=== PATIENT | male | born 1985 | race Caucasian/White ===

== ENCOUNTER 2023-08-28 16:38 | Emergency (ER) | payer SELFPAY ==
[2023-08-28 16:42] VITALS: BP 123/79; PULSE 71; RESP 18; TEMP 36.9; O2SAT 98; BMI 26.6
--- NOTE | 2023-08-28 16:45 | PC.NURSE ---
Swelling noted to left hand, no redness or open areas noted, patient denies injury to area.
--- NOTE | 2023-08-28 16:49 | XR_ITS ---
The [address] [address] Patient Name: TWILA GARCIA MRN: [id number] date: 1985 Sex: M Assigned Patient Location: ER Current Patient Location: ER Accession/Order Number: [id number] Exam Date: 08/28/2023 16:55 Report Date: 08/28/2023 17:20 At the request of: TRAVIS NÚÑEZ Procedure: XR hand LT min 3V EXAM: XR hand LT min 3V HISTORY: Pain and swelling COMPARISON: 06/13/2013. TECHNIQUE: 3 views. FINDINGS: Dorsal soft tissue swelling. No soft tissue gas collections. No articular or periarticular erosive changes. No evidence of fracture or dislocation. XR/XR hand LT min 3V IMPRESSION: Dorsal soft tissue swelling. Electronically authenticated by: RAFY LOWE Date: 08/28/2023 17:20
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
[2023-08-28] MEDS: CEPHALEXIN 500 MG CAPSULE PO (17:49)
== END 2023-08-28 17:56 | disposition home or self-care (01) ==
PROVIDERS: Emergency Provider Emergency Medicine
DX: M79.641 Pain in right hand (principal); F17.210 Nicotine dependence, cigarettes, uncomplicated
CPT/HCPCS: 73130; 99283

== ENCOUNTER 2024-07-02 23:44 | Emergency (ER) | payer SELFPAY ==
[2024-07-02 23:52] VITALS: BP 128/90; PULSE 84; TEMP 36.7; O2SAT 99; BMI 25.8
--- NOTE | 2024-07-03 00:14 | ED_ITS ---
HPI - Male Genitourinary General Chief complaint: Urogenital-Male Stated complaint: STD EXPOSURE Time Seen by Provider: 07/02/24 23:57 Source: patient Mode of arrival: walk-in Limitations: no limitations History of Present Illness HPI Narrative: This 39-year-old male presents for evaluation of several days of dysuria with yellow penile discharge. He believes he has been exposed to an STD. He denies any abdominal pain or fever. His female partner has not been tested or told him that she has an STD but he is concerned that he has been exposed to something. No additional injuries or complaints. Related Data Home Medications ?Medication ?Instructions ?Recorded ?Confirmed No Known Home Medications 07/02/24 07/02/24 Allergies Allergy/AdvReac Type Severity Reaction Status Date / Time No Known Drug Allergies Allergy Verified 07/02/24 23:51 Review of Systems ROS Status of ROS 10 or more systems reviewed and unremark able except as noted in history and below PFSH PFSH Social History Smoking status: Current every day smoker Little interest or pleasure in doing things: not at all Feeling down, depressed, or hopeless: not at all Exam Narrative Exam Narrative: Vital signs and Nursing Notes reviewed: Patient is afebrile with a normal pulse, normal blood pressure, he is not hypoxic with pulse ox of 99% on room air General: Awake, alert, oriented, no acute distress, lying comfortably on the stretcher HEENT: Normocephalic atraumatic, mucous membranes are moist and pink, eyes are clear, normal conjunctiva, vision is grossly intact Chest: Lungs are clear to auscultation with good air entry, there is no wheezing rhonchi or rales appreciated no accessory muscle use, patient is speaking in complete sentences-no chest wall tenderness to palpation CVS: Regular rate and rhythm S1-S2, no murmurs rubs or gallops, pulses are brisk and equal bilaterally ABD: Soft, nondistended, nontender, no rebound guarding or rigidity, bowel sounds are normal, no pulsatile masses appreciated - deferred at patient's request Extremities: Moving all extremities, no lower extremity tenderness or swelling noted, negative Homans' sign, pulses are brisk and equal bilaterally Skin: Normal in appearance without rash,pallor, petechiae or purpura Neuro: No focal deficits Constitutional Vital Signs, click to edit/add: Last Vital Signs Temp 98.0 F 07/02/24 23:52 Pulse 84 07/02/24 23:52 Resp 18 07/02/24 23:52 BP 128/90 07/02/24 23:52 Pulse Ox 99 07/02/24 23:52 Course Vital Signs Vital signs: Vital Signs Temperature 98.0 F 07/02/24 23:52 Pulse Rate 84 07/02/24 23:52 Respiratory Rate 18 07/02/24 23:52 Blood Pressure 128/90 07/02/24 23:52 Pulse Oximetry 99 07/02/24 23:52 Temperature 98.0 F 07/02/24 23:52 Pulse Rate 84 07/02/24 23:52 Respiratory Rate 18 07/02/24 23:52 Blood Pressure 128/90 07/02/24 23:52 Pulse Oximetry 99 07/02/24 23:52 MDM - Male Genitourinary MDM Narrative Medical decision making narrative: This 39-year-old male presents for evaluation of dysuria with yellow penile discharge. He is he has been exposed to an STD. I offered him a swab or urine testing. He opted for urine testing and declined a exam. He was empirically treated with oral Zithromax and IM Rocephin with a dose of Zofran to prevent nausea from the Zithromax. He was encouraged to use barrier contraception in the future and let his sexual partners know that he is being treated for an STD. I explained to him that the results of his cultures will be relayed to him later in the week. Discharge Plan Discharge Chief Complaint: Urogenital-Male Clinical Impression: Urethritis, Exposure to STD Patient Disposition: Home, Self-Care Time of Disposition Decision: 00:14 Condition: Good Prescriptions / Home Meds: No Action No Known Home Medications Print Language: Tamazight Instructions: Sexually Transmitted Diseases (ED), Safe Sex Practices (ED) Referrals: Physician,Non-Staff, MD [Primary Care Provider] - 1 week
[2024-07-03] MEDS: ONDANSETRON 4 MG RAPDIS TABLET SL (00:27)
[2024-07-03] MEDS: CEFTRIAXONE 250 MG, WATER FOR INJECTION,STERILE 0.9 ML IM (00:29)
[2024-07-03] MEDS: AZITHROMYCIN 250 MG TABLET 1000 MG PO (00:31)
== END 2024-07-03 00:38 | disposition home or self-care (01) ==
PROVIDERS: Emergency Provider Emergency Medicine
DX: N34.2 Other urethritis (principal); Z20.2 Contact with and (suspected) exposure to infections with a predominantly sexual mode of transmission; F17.200 Nicotine dependence, unspecified, uncomplicated
CPT/HCPCS: 87491; 87591; 96372; 99284; J0696; Q0162